=== PATIENT | female | born 1965 | race Hispanic/Latino ===

== ENCOUNTER 2023-04-02 00:20 | Emergency (ER) | payer OTHER ==
[2023-04-02] MEDS ORDERED: Acetaminophen 500 MG TAB ONE (01:08)
== END 2023-04-02 01:52 | disposition home or self-care (01) ==
LOC: CSHERS 00:20
DX: T14.8XXA Other injury of unspecified body region, initial encounter (principal); M54.2 Cervicalgia; M25.522 Pain in left elbow; I10 Essential (primary) hypertension
CPT/HCPCS: 71045